=== PATIENT | male | born 1985 ===

== ENCOUNTER 2024-03-05 22:11 | Observation (INO) | payer BC, SELFPAY ==
[2024-03-05 16:46] VITALS: BP 151/91
[2024-03-05 17:01] LABS: % Basophils 0.3 % (0-2); % Immature Granulocytes 0.3 % (0-0.5); % Lymphocytes 14.8 % (20.5-51.1); % Monocytes 8.1 % (1.7-9.3); % Neutrophils 75.5 % (42.2-75.2); Absolute Eosinophils 0.1 10^3/uL (0-0.7); Absolute Lymphocytes 1.7 10^3/uL (1.2-3.4); Absolute Monocytes 0.9 10^3/uL (0.1-0.6); Absolute Neutrophils 8.8 10^3/uL (1.4-6.5); Hematocrit 39.2 % (39.0-52.0); Hemoglobin 13.2 g/dL (13.0-18.0); Mean Corp Hgb Conc. 33.7 g/dL (33.0-37.0); Mean Corpuscular Hgb 29.4 pg (27.0-31.0); Mean Corpuscular Volume 87.3 fL (80.0-94.0); Mean Platelet Volume 8.9 fL (7.4-10.4); Nucleated Red Blood Cells % 0 % (-); Platelet Count 287 10^3/uL (130-400); Red Blood Cell Count 4.49 10^6/uL (4.70-6.10); Red Cell Dist. Width 13.2 % (11.5-14.5); White Blood Cell Count 11.7 10^3/uL (4.8-10.8)
[2024-03-05 17:20] VITALS: BMI 44.1
[2024-03-05 17:21] LABS: ALT (SGPT) 29 U/L (0-50); AST (SGOT) 21 U/L (17-59); Albumin 4.2 g/dl (3.5-5.0); Alkaline Phosphatase 59 U/L (38-126); Blood Urea Nitrogen 15 mg/dl (9-20); Calcium 8.8 mg/dl (8.4-10.2); Carbon Dioxide 26 mmol/L (22-30); Chloride 105 mmol/L (98-107); Glucose 95 mg/dl (70-99); Potassium 4.5 mmol/L (3.5-5.1); Sodium 136 mmol/L (135-145); Total Bilirubin 0.3 mg/dl (0.2-1.3); Total Protein 6.7 g/dl (6.3-8.2); eGFR > 60.00
[2024-03-05] MEDS: DILAUDID 1 MG IV ×3 (18:53→22:45)
[2024-03-05] MEDS: VERSED 2 MG IV (19:20)
--- NOTE | 2024-03-05 20:08 | ED.GENMED ---
History of Present Illness
General
Chief Complaint: Skin Problem
Time Seen by Provider: 03/05/24 17:57
Travel History
Have you had any contact with someone who has COVID-19?: No
Do you have any symptoms of coronavirus? Fever > 100 degrees, chills, cough, shortness of breath, sore throat, loss of taste or smell, muscle aches, or headache?: No
History of Present Illness
History of Present Illness:
38-year-old male with history of recurrent perianal abscesses presents to the emergency department for evaluation of perirectal pain and tactile fevers. He has previously required operative drainage. Just moved here from [place], has no records
within this hospital system. Denies any other past medical history
Review of Systems
Review of Systems
Allergies reviewed?: Yes
All Other Systems: ROS reviewed and negative except as documented in HPI and ROS
Phy Exam
Physical Exam
Physical Exam:
GEN: Well appearing, NAD, WDWN
HEENT: Oral mucosa moist, no scleral icterus
Cardiac: Regular rate
Lung: No respiratory distress, no tachypnea
MSK: No gross deformity or injuries
Rectal: Palpable induration to the L inferior external anus, does not cross the anal verge. Exquisitely tender
Skin: Good color, no pallor or jaundice, no rashes
Neuro: AO x3, moves all extremities freely
Psych: Calm, cooperative
Course
Orders/Labs/Results
Orders:
Orders
03/05/24 16:51
CT Pelvis With Iv Contrast Urgent
Comment:
Reason For Exam: rectal pain with history of abcess and fistula
03/05/24 16:55
Complete Blood Count/With Diff Urgent
Comprehensive Metabolic Panel Urgent
03/05/24 18:43
HYDROmorphone [Dilaudid] 1 mg IV NOW STA
03/05/24 19:16
Midazolam HCl [Versed] 2 mg IV NOW STA
03/05/24 20:09
Piperacillin/Tazo 3.375 Gram [Zosyn] 3.375 gram in 50 ml IV NOW
03/05/24 20:24
HYDROmorphone [Dilaudid] 1 mg IV NOW STA
Abnormal Lab Results
03/05/24
16:55
WBC 11.7 H 10^3/uL
(4.8-10.8)
RBC 4.49 L 10^6/uL
(4.70-6.10)
Absolute Neuts (auto) 8.8 H 10^3/uL
(1.4-6.5)
Absolute Monos (auto) 0.9 H 10^3/uL
(0.1-0.6)
Neutrophils % 75.5 H %
(42.2-75.2)
Lymphocytes % 14.8 L %
(20.5-51.1)
03/05/24 16:55
03/05/24 16:55
Vital Signs
Initial and Last Documented VS:
Initial Vital Signs
Temp Pulse Resp BP Pulse Ox
99.1 F 111 18 151/91 99
03/05/24 16:46 03/05/24 16:46 03/05/24 16:46 03/05/24 16:46 03/05/24 16:46
Last Documented Vital Signs
Temp Pulse Resp BP Pulse Ox
98.4 F 102 22 151/91 100
03/05/24 20:21 03/05/24 20:21 03/05/24 20:21 03/05/24 16:46 03/05/24 20:21
Procedures
Incision/Drainage/Joint Aspiration
Perianal:
Anethesia: 1% Lidocaine with Epi
Preparation: cleaned with Betadine
Type of procedure: incise
Nature of site: abscess
Description of abscess: greater than 3cm
Loculations broken up: Yes
How much fluid was obtained?: number in mls (50cc)
Fluid description: purulent and bloody
Additional information:
Procedure terminated at pt's request due to uncontrolled pain
MDM/Problems Addressed
MDM/Problems Addressed:
Unfortunately I&D was terminated before I could confirm adequate drainage. Will admit to CRS service for OR drainage in the AM, zosyn started
*Critical Care Note
Total Time (30-74mins, 75-104mins- exclusive of procedures): Not Applicable
ED Attending Note
-
Portions of this chart may have been created with voice recognition software.� Occasional wrong word or��sound alike� substitutions may have occurred due to the inherent limitations of voice recognition software.
Discharge Plan
Departure
Patient Disposition: Admit
Date of Disposition: 03/05/24
Time of Disposition: 20:08
Admit to: Med/Surg
Presentation/result/management discussed w/ accepting MD/DO: Colorectal-Alberto
Discharge Problem:
Abscess, perianal
Prescriptions:
No Action
ibuprofen 200 mg Capsule
400 mg PO Q6H PRN (Reason: mild pain/fever)
Referrals:
NONE,* [Family Provider] -
Interventions
Interventions:
*Risk Screen - Suicide Last Done: 03/05/24 16:47
*General Assessment Last Done: 03/05/24 16:47
*Neglect/Abuse Screening Last Done: 03/05/24 16:47
*ED COVID-19 Vaccine History Last Done: 03/05/24 16:47
Discharge Date and Time
Print Language: BELGIAN
[2024-03-05] MEDS: ZOSYN 50 IV (20:19)
--- NOTE | 2024-03-05 21:11 | HPS.HSE ---
Family Physician
-
Family Physician: * NONE
Chief Complaint
-
rectal pain
History of Present Illness
This is a pleasant 38 year old male who comes to the ED with his due to intractable rectal pain. He has history of 5-6 episodes of similar and has gone to the OR at least twice for drainage. He recently relocated from [place] and has family
here in [place]. He is also looking for a primary physician in this area. He is considering Dr. Aquino and asks for his records to be sent there. ED PA-C attempted to drain rectal abscess. Patient has no PMH but has been without consistent medical
surveillance. He appears comfortable post I&D but admitted to it being very painful during procedure. Denies CP, SOB, GUERRA, abdominal pain, n/v/d, or dysuria. He takes no home medications except for prn ibuprofen. He mentions his normal temp is 96F
so when he was 99F earlier he had chills. At present he feels better and 'warm'.
Medical History
Past Medical History
Past Medical History: Reports Other (previous perianal abscesses)
Additional Past Medical History:
rectal abscesses x5-6
Past Surgical History: Reports Other (surgical I+D of at least 2 rectal abscesses in past)
Social History
Tobacco: Non-smoker
Alcohol: None
Drug: Marijuana (occasional)
Personal:
Living: With Family
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
Family History
Family History: Hypertension
Allergies / Home Medications
Allergies reflects when Allergies were last updated in [facility].
Home Medications with original date entered in [facility]
Allergy/AdvReac Type Severity Reaction Status Date / Time
No Known Allergies Allergy Unverified 03/05/24 16:44
Allergy/Medication List:
Allergies
Allergy/AdvReac Type Severity Reaction Status Date / Time
No Known Allergies Allergy Unverified 03/05/24 16:44
Home Medications
ibuprofen 200 mg capsule 400 mg PO Q6H PRN mild pain/fever 03/05/24
Review of Systems
-
History Source: Patient, Family and Coordinated Provider (previously obtained medical records)
A 12 point ROS was completed and negative except as noted: Yes
Constitutional: Reports Chills
EENT: Reports No Symptoms
Respiratory: Reports No Symptoms
Cardiac: Reports No Symptoms
Abdomen/GI: Reports Pain
: Reports No Symptoms
Musculoskeletal: Reports No Symptoms
Skin: Reports No Symptoms
Neurological: Reports No Symptoms
Endocrine: Reports No Symptoms
Hematologic/Lymphatic: Reports No Symptoms
Psych: Reports No Symptoms
Physical Exam
Vital Signs
Vital Signs
Temp Pulse Resp BP Pulse Ox
98.4 F 102 22 151/91 100
03/05/24 20:21 03/05/24 20:21 03/05/24 20:21 03/05/24 16:46 03/05/24 20:21
Physical Exam
General: Well Developed, Well Nourished and Comfortable
HEENT: NormoCephalic, Moist mucous membranes and PERRLA
Respiratory: Clear and Non Labored Respirations
Cardiac: S1/S2 and Regular Rhythm
GI: Soft, Non Tender and Non Distended
Rectal: Deferred by Provider (patient with I&D of area earlier this evening)
Genito-urinary: Clear Urine
Musculoskeletal: No Clubbing and No Cyanosis
Skin: Warm and Dry
Neuro: Awake, Alert, Oriented, AO x 3, No Motor Deficits, Nonfocal/grossly intact and No Sensory Deficits
Hematologic/Lymphatic: No Lymphadenopathy
Psych: Calm
Laboratory Results
-
03/05/24 16:55
03/05/24 16:55
Laboratory Results
Total Bilirubin 0.3 mg/dl (0.2-1.3) 03/05/24 16:55
AST 21 U/L (17-59) 03/05/24 16:55
ALT 29 U/L (0-50) 03/05/24 16:55
Alkaline Phosphatase 59 U/L (38-126) 03/05/24 16:55
Data Reviewed
-
CT Scan: Report Reviewed by me
Lab Data: Labs Reviewed by me
Old Records: Reviewed
Impression/Plan
-
IMPRESSION: rectal abscess
PLAN: This is a pleasant 38 year old male who comes to the ED with his due to intractable rectal pain. He has history of 5-6 episodes of similar and has gone to the OR at least twice for drainage. He recently relocated from [place] and has
family here in [place]. He is also looking for a primary physician in this area. He is considering Dr. Aquino and asks for his records to be sent there. ED PA-C attempted to drain rectal abscess. Patient has no PMH but has been without consistent
medical surveillance. He appears comfortable post I&D but admitted to it being very painful during procedure. Denies CP, SOB, GUERRA, abdominal pain, n/v/d, or dysuria. He takes no home medications except for prn ibuprofen which was only recently due
to this discomfort. He also mentions his normal temp is 96 F so he was 99F earlier and had been experiencing chills then but now he feels warm.
*Rectal Abscess: NPO after midnight, Zosyn IV, Dilaudid IV prn. Zofran IV prn nausea.
*DVT prophylaxis: Heparin SC, OOB ad teddy.
*Disposition: FC. Dr. Dominguez [facility]
[2024-03-05 22:20] VITALS: BP 128/86
[2024-03-05] MEDS: ZOFRAN 4 MG IV (22:45)
[2024-03-05] MEDS: NSS 1000 IV (22:46)
[2024-03-05 22:47] VITALS: BP 108/71
[2024-03-06] VITALS (16 sets, daily range): BP systolic 101–158; BP diastolic 45–94
[2024-03-06] MEDS: DILAUDID 1 MG IV ×3 (01:57→09:31)
[2024-03-06] MEDS: ZOSYN 50 IV ×4 (02:56→21:34)
[2024-03-06] MEDS: ZOFRAN 4 MG IV (06:05)
[2024-03-06 10:34] LABS: INR 0.97; PT 12.9 Sec (11.4-14.6)
[2024-03-06 10:35] LABS: APTT 24.5 Sec (23.4-35.0)
--- NOTE | 2024-03-06 11:45 | PTCARENOTE ---
Pt transported to pre-op with all belongings. at bedside.
--- NOTE | 2024-03-06 12:03 | W.PN.CRS1 ---
Today's Communication / Plan
-
I personally reviewed the medical record and imaging studies, and I reviewed the treatment options. Without surgery, the condition is unlikely to improve. The plan is for a rectal exam under anesthesia, incision and drainage of any persistent
collection, possible fistulotomy, possible drain. Risks include, but are not limited to, bleeding, recurrence, incontinence and the risks of anesthesia. I also reviewed the typical recovery and functional results. His was present, all questions
answered and consent obtained. Dispostion to be determined after the procedure.
Assessment/Plan
-
Recurrent perirectal abscess
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
Subjective Data
Subjective Data
Date of Service: March 06, 2024
Still anorectal pain, as was as nausea and sweats.
Objective Data
-
Vital Signs
Temp Pulse Resp BP Pulse Ox
98.3 F 69 18 127/77 97
03/06/24 08:41 03/06/24 08:41 03/06/24 08:41 03/06/24 08:41 03/06/24 08:41
Intake & Output
03/05/24 03/06/24 03/07/24
06:59 06:59 06:59
Intake Total 290 / 290
Output Total 600 / 600
Balance -310 / -310
Intake:
IV fluids (Total) 240 / 240
IV piggybacks 50 / 50
Output:
Urine, Voided 600 / 600
Other:
Number of approximated MODERATE 1
amounts of urine
Lab Results
03/05/24 16:55
03/05/24 16:55
Physical Exam
-
General: No Acute Distress
Abdomen: Soft
Rectal: Other (will exam in the OR)
Data Reviewed
-
CT Scan: Image Reviewed
--- NOTE | 2024-03-06 13:43 | W.IMMPOSTOP ---
Documented by User: ELSA Patel 03/06/24 13:50
Surgical Immed Post Op Note
-
Primary Surgeon: Chuck Dominguez MD
Sap Specialist: GALINA Patel
Pre-op Diagnosis: tara-rectal abscess
Post-op Diagnosis: same
Procedure Performed: Incision and drainage
Anesthesia Type: GET
Specimen / Cultures: None
Estimated Blood Loss: 8 cc
Complications: None
Operative Findings: 1) Prior wound packing
2) enlarged internal hemorrhoids
3) trans-sphincteric fistula

Documented by User: Jonathan Dominguez MD 03/06/24 13:53
Surgical Immed Post Op Note
-
Primary Surgeon: Chuck Dominguez MD
Sap Specialist: GALINA Patel
Pre-op Diagnosis: tara-rectal abscess
Post-op Diagnosis: same
Procedure Performed: Incision and drainage
Anesthesia Type: GET
Specimen / Cultures: None
Estimated Blood Loss: 8 cc
Complications: None
Operative Findings: 1) Small residual abscess left anterior quadrant
2) enlarged hemorrhoids
3) no obvious primary opening of a fistula (exam was limited)
Patient's update.
[2024-03-06] MEDS: NSS 1000 IV (14:45)
[2024-03-06] MEDS: TORADOL 15 MG IV ×2 (15:50→21:34)
[2024-03-06] MEDS: TYLENOL 650 MG PO ×2 (15:53→21:34)
--- NOTE | 2024-03-06 17:45 | SUR.PHASEI ---
Patient stable in PACU waiting for bed assignment. VSS, eating dinner at present, patients informed of progress. pain mild, no nausea. Ezekiel fuller RN BSN.
--- NOTE | 2024-03-06 17:55 | SUR.PHASEI ---
Called twice to floor to give report, RN unavailable. Will call when free. Ezekiel fuller RN BSN.
[2024-03-06] MEDS: TYLENOL PO (21:33)
[2024-03-06] MEDS: TUMS 1 TABLET PO (23:04)
[2024-03-07] MEDS: TORADOL 15 MG IV ×2 (02:20→08:50)
[2024-03-07] MEDS: ZOSYN 50 IV ×2 (02:20→08:50)
[2024-03-07] MEDS: TYLENOL 650 MG PO ×3 (02:20→10:05)
[2024-03-07 03:05] VITALS: BP 113/64
[2024-03-07] MEDS: NSS 1000 IV (05:57)
[2024-03-07 07:47] VITALS: BP 131/92
--- NOTE | 2024-03-07 08:21 | W.PN.CRS1 ---
Today's Communication / Plan
-
discharge on abx
Assessment/Plan
-
POD#1 Incision and drainage
1. Labs normal.
2. Continue antibiotics - on IV zosyn. Will switch to oral antibiotics on d/c.
3. OOB as tolerated.
4. Sitz baths twice a day for 10 minutes at a time with warm water.
5. Packing removed, replaced with gauze over site.
6. Stool softeners as needed.
7. Okay for discharge today. Will need to follow up with Dr. Dominguez in 1-2 weeks. Activity levels, medications, and discharge instructions discussed with patient. All questions answered.
Subjective Data
Procedure
03/06/2024- Incision and drainage
Subjective Data
Date of Service: March 07, 2024
Patient states he feels better today. He had some chills post op which has resolved. He ate without nausea yesterday. He is urinating without difficulty. He has flatus. He has not had a BM yet.
Objective Data
-
Vital Signs
Temp Pulse Resp BP Pulse Ox
98.1 F 81 16 131/92 95
03/07/24 07:47 03/07/24 07:47 03/07/24 07:47 03/07/24 07:47 03/07/24 07:47
Intake & Output
03/06/24 03/07/24 03/08/24
06:59 06:59 06:59
Intake Total 1999 / 1999
Output Total 600 / 600
Balance 1400 / 1400
Intake:
Oral fluids 665 / 665
IV fluids (Total) 1185 / 1185
Nss 1,000 ml @ 60 mls/hr IV . 150 / 150
[id number] KIKE Rx#:[id number]
norm 75 / 75
IV piggybacks 150 / 150
Output:
Urine, Voided 600 / 600
Other:
Number of approximated MODERATE 2
amounts of urine
Lab Results
03/05/24 16:55
03/05/24 16:55
Physical Exam
-
General: No Acute Distress and AOx3
Abdomen: Soft, Non Distended and Non Tender
Wound: No Signs of Infection and Dressing Changed
--- NOTE | 2024-03-07 08:32 | W.DS.TRANS ---
DC Summary - Dyed Raw Stock Blower Feeder
-
Discharge Instructions:
Discharge Diagnosis/Procedures Status post Incision and drainage
Diet No restrictions
Activity As tolerated
Driving Restrictions No driving if using narcotic pain medication.
Bathing Restrictions None
Wound Care Sitz baths twice a day for 7 days. 10 minutes at
a time with warm water. No salts needed in bath
. No creams or ointments needed to area.
Instructions: How to Do a Sitz Bath
Stand-Alone Forms:
Changes to Home Medications: Yes
Discharge Medications:
DC Medications w/original date entered in [facility]
ibuprofen 200 mg capsule 400 mg PO Q6H PRN mild pain/fever 03/05/24
amoxicillin 875 mg-potassium clavulanate 125 mg tablet 1 tab PO Q12H 10 days #20 tabs 03/07/24
tramadol 50 mg tablet 50 mg PO Q6H PRN pain #20 tabs 03/07/24
Home Medication Changes
amoxicillin 875 mg-potassium clavulanate 125 mg tablet 1 tab PO Q12H 10 days #20 tabs 03/07/24
tramadol 50 mg tablet 50 mg PO Q6H PRN pain #20 tabs 03/07/24
Pending Results: No
--- NOTE | 2024-03-07 09:03 | W.DCSUMMARY ---
Discharge Summary
Discharge Data
Date of Admission: 03/05/24
Date of Discharge: 03/07/24
-
Pending Results: No
Hospital Course
38 yo male admitted to the ER due to rectal pain. He was found to have a tara-rectal abscess that was not drainable in the ER. He was started on IV antibiotics. The following day on 03/06/2024 he underwent an I+D of the perianal abscess by Dr. Dominguez.
He tolerated the procedure well. He was kept overnight due to chills. The following day he was tolerating a diet and having flatus. His pain was controlled. His dressing was changed. It was determined the patient could be discharged to home with
antibiotics, pain medication, and sitz baths for a week. All discharge medications and instructions were discussed with patient. Follow up with DR. Dominguez in the office for a wound check in 1-2 weeks.
Discharge Plan
-
Patient Disposition: Home (Routine Discharge)
Discharge Diagnosis/Procedures: Status post Incision and drainage
Diet: No restrictions
Activity: As tolerated
Driving Restrictions: No driving if using narcotic pain medication.
Bathing Restrictions: None
Wound Care: Sitz baths twice a day for 7 days. 10 minutes at a time with warm water. No salts needed in bath. No creams or ointments needed to area.
Activity Restrictions/Additional Instructions:
Take a stool softener, such as Colace, if you become constipated.
Daily fiber supplement is recommended.
Change your dressing at least once a day with a gauze in your underwear, and as needed. Okay to leave wound open when bathing.
Continue your course of antibiotics.
Instructions: How to Do a Sitz Bath
Referrals:
Jonathan Dominguez MD [Active] - in one to two weeks
Additional Discharge Medication Instructions: Tylenol or Ibuprofen as needed for pain. Maximum dose of Tylenol is 4,000mg in 24 hours. Maximum dose of Ibuprofen is 3,200mg in 24 hours.
Prescriptions:
New
tramadol 50 mg tablet
50 mg PO Q6H PRN (Reason: pain) Qty: 20 0RF
amoxicillin-pot clavulanate 875-125 mg tablet
1 tab PO Q12H 10 Days Qty: 20 0RF
Continued
ibuprofen 200 mg Capsule
400 mg PO Q6H PRN (Reason: mild pain/fever)
Discharge Orders:
Discharge Patient (As Directed); Ordered 03/07/24
Ordered By: Paola Varghese
Discharge Date and Time
Print Language: BANGLADESHI
--- NOTE | 2024-03-07 09:54 | CM ---
Patient seen bedside, initial assessment completed. Patient reports he recently moved form [place] with his and one year old. Patient denies DME, VN, or SNF. Patient does not have a PCP at this time, confirms pharmacy [facility].
OBS form given, signed, placed in patients chart. CM will continue to follow for discharge planning needs.
Plan; home with , no needs.
== END 2024-03-07 11:17 | disposition home or self-care (01) ==
LOC: 2 SOUTH 22:11
PROVIDERS: Emergency Medicine; Physician Assistant; ADMITTING PHYSICIAN Surgery; EMERGENCY PHYSICIAN Emergency Medicine
DX: K61.1 Rectal abscess (principal)
CPT/HCPCS: 46040; 10060; 72193; 80053; 85025; 85610; 85730; 86850; 86900; 86901; 96361; 96365; 96375; 96376; 99285; 99406; G0378; Q9967